=== PATIENT | male | born 1960 ===

== ENCOUNTER → 2017-04-25 | Outpatient (CLI) | payer BC | END | disposition home or self-care (01) | LOC: C.PATHSPEC 17:13 | PROVIDERS: ATTEND Dermatology | DX: C44.41 Basal cell carcinoma of skin of scalp and neck (principal); C44.612 Basal cell carcinoma of skin of right upper limb, including shoulder; C44.619 Basal cell carcinoma of skin of left upper limb, including shoulder ==